=== PATIENT | female | born 1995 | race Two or more races ===

== ENCOUNTER 2018-06-09 23:28 | Inpatient (IN) | payer OTHER ==
[~2018-06-09] VITALS: Ht 157.5 cm; Wt 39.7 kg
[2018-06-09] MEDS ORDERED: NALOXONE 0.4 MG/ML, 1ML ONE (23:32)
[2018-06-09] MEDS ORDERED: SODIUM CHLORIDE 0.9% 1,000 ML IV ONE (23:35)
[2018-06-09 23:45] LABS: MEAN CORPUSCULAR HEMOGLOBIN 31.7 pg (27.0-34.8); MEAN CORPUSCULAR HGB CONC 33.6 g/dL (32.4-35.8); MEAN CORPUSCULAR VOLUME 94.2 fL (80-100); MEAN PLATELET VOLUME 7.5 fL (7.4-10.4); PLATELET COUNT 313 x10^3/uL (130-400); RED CELL DISTRIBUTION WIDTH 12.4 % (9.6-15.2)
[2018-06-09] MEDS ORDERED: PHARMACOKINETIC CONSULTATION MC ONE (23:45)
[2018-06-09] MEDS ORDERED: VANCOMYCIN 750 MG in SODIUM CHLORIDE 0.9% 100 ML IV ONE (23:45)
[2018-06-10] LABS: ALANINE AMINOTRANSFERASE 34 U/L (12-78); ANION GAP 20 mmol/L (5-15); CALCIUM 9.7 mg/dL (8.5-10.1); CHLORIDE 106 mmol/L (98-107)
[2018-06-10] MEDS ORDERED: VANCOMYCIN PER PHARMACY MC ONE
[2018-06-10] MEDS ORDERED: NALOXONE 0.4 MG/ML, 1ML IVPush PRN
[2018-06-10] MEDS ORDERED: SODIUM CHLORIDE 0.9% 1,000ML IVBOLUS ONE
[2018-06-10] MEDS ORDERED: PIPERACILLIN/TAZO/PMX 3.375GM 50 ML IVPB ONE
[2018-06-10 00:02] LABS: MD YES
[2018-06-10 00:05] LABS: ALKALINE PHOSPHATASE 72 U/L (45-117); BAND#(MANUAL) 2.79 x10^3/uL; BANDS%(MANUAL) 9 % (0-7); BILIRUBIN,TOTAL 0.3 mg/dL (0.2-1.0); CREATININE 1.08 mg/dL (0.55-1.02); LYMPH#(MANUAL) 0.93 x10^3/uL (1-6.1); LYMPHS% (MANUAL) 3 % (22-44); MONOS#(MANUAL) 2.17 x10^3/uL (0.3-2.7); MONOS% (MANUAL) 7 % (2-9); SEG#(MANUAL) 25.11 x10^3/uL (1.8-8); SEGS% (MANUAL) 81 % (42-75); TOTAL PROTEIN 9.4 g/dL (6.4-8.2)
[2018-06-10 00:06] LABS: <PLATELET ESTIMATE> ADEQUATE; <PLT MORPHOLOGY> NORMAL PLT MORPH; <RBC MORPHOLOGY> NORMAL
[2018-06-10 00:08] LABS: ACETAMINOPHEN < 2 mcg/mL (10-30); SALICYLATE LEVEL < 1.7 mg/dL (2.8-20.0)
[2018-06-10] MEDS ORDERED: NS + 20MEQ KCL 1,000 ML IV SCH (00:21)
[2018-06-10] MEDS ORDERED: PIPERACILLIN/TAZO/PMX 3.375GM 50 ML ONE (00:23)
[2018-06-10] MEDS: SODIUM CHLORIDE 0.9% 1,000ML IVBOLUS ONE ×2 (00:26→00:33)
[2018-06-10] MEDS ORDERED: ZIPRASIDONE 20 MG INJ IM PRN (00:30)
[2018-06-10] MEDS ORDERED: DOCUSATE 100 MG CAPSULE PO PRN (00:30)
[2018-06-10] MEDS ORDERED: ACETAMINOPHEN 325 MG TABLET PO PRN (00:30)
[2018-06-10] MEDS ORDERED: ONDANSETRON 2MG/ML, 2ML IVPush PRN (00:30)
[2018-06-10] MEDS: HEPARIN 5,000 UNITS/ML, 1ML SQ SCH ×3 (00:30→16:48)
[2018-06-10] MEDS ORDERED: CEFTRIAXONE PMX 1GM/50ML 50 ML IV SCH (01:00)
[2018-06-10 01:30] VITALS: BP 131/85
[2018-06-10 01:50] LABS: CULTURE INDICATED? YES; MICROSCOPIC INDICATED
[2018-06-10 01:55] LABS: AMPHETAMINE SCREEN, URINE Negative (Negative); BARBITURATE SCREEN, URINE Negative (Negative); BENZODIAZEPINE SCREEN, URINE Negative (Negative); CANNABINOID SCREEN, URINE Negative (Negative); COCAINE SCREEN, URINE Negative (Negative); METHADONE SCREEN, URINE Negative (Negative); OPIATE SCREEN, URINE Negative (Negative)
[2018-06-10 06:31] VITALS: BP 92/58
[2018-06-10] MEDS: ONDANSETRON 4 MG TABLET PO PRN ×2 (08:23→15:56)
[2018-06-10 13:13] VITALS: BP 102/68
[2018-06-10] MEDS: SODIUM CHLORIDE 0.9% 1,000 ML IV SCH (16:48)
[2018-06-10 19:50] VITALS: BP 99/63
[2018-06-11] MEDS: HEPARIN 5,000 UNITS/ML, 1ML SQ SCH ×2 (00:52→08:12)
[2018-06-11] MEDS: SODIUM CHLORIDE 0.9% 1,000 ML IV SCH (00:53)
[2018-06-11] MEDS ORDERED: CEFTRIAXONE 1,000 MG in SODIUM CHLORIDE 0.9% 50 ML IV SCH (01:00)
[2018-06-11 03:00] VITALS: BP 103/57
[2018-06-11 05:47] LABS: CHLORIDE 118 mmol/L (98-107); CREATININE 1.06 mg/dL (0.55-1.02)
[2018-06-11 05:57] LABS: BASOPHILS # (AUTO) 0.03 x10^3/uL (0-0.3); BASOPHILS % (AUTO) 0 % (0-1); EOSINOPHILS # (AUTO) 0.01 x10^3/uL (0-0.8); EOSINOPHILS % (AUTO) 0 % (1-7); LYMPHOCYTES # (AUTO) 1.54 x10^3/uL (1-6.1); LYMPHOCYTES % (AUTO) 13 % (22-44); MD NO; MEAN CORPUSCULAR HEMOGLOBIN 31.2 pg (27.0-34.8); MEAN CORPUSCULAR HGB CONC 33.4 g/dL (32.4-35.8); MEAN CORPUSCULAR VOLUME 93.5 fL (80-100); MEAN PLATELET VOLUME 7.6 fL (7.4-10.4); MONOCYTES # (AUTO) 0.99 x10^3/uL (0-1.4); MONOCYTES % (AUTO) 9 % (2-9); NEUTROPHILS # (AUTO) 9.03 x10^3/uL (1.8-8.0); NEUTROPHILS % (AUTO) 78 % (42-75); PLATELET COUNT 206 x10^3/uL (130-400); RED CELL DISTRIBUTION WIDTH 12.9 % (9.6-15.2)
[2018-06-11 06:14] LABS: ANION GAP 9 mmol/L (5-15)
[2018-06-11 06:19] LABS: CALCIUM 7.3 mg/dL (8.5-10.1)
[2018-06-11 07:00] VITALS: BP 102/65
[2018-06-11] MEDS ORDERED: LORazepam 1MG TABLET PO PRN (10:00)
[2018-06-11 14:00] VITALS: BP 98/61
[2018-06-11 17:12] VITALS: BP 108/76
[2018-06-11 19:05] VITALS: BP_SYST 100; BP_SYST 101; BP_DIAS 64; BP_DIAS 65
[2018-06-11] MEDS ORDERED: CEFDINIR 300 MG CAPSULE PO SCH (21:00)
== END 2018-06-11 23:38 | DRG 917 ==
LOC: ED 06-10 00:39 → EDIP 06-10 00:40 → 3NE 06-10 01:11 → 2N 06-11 16:54
PROVIDERS: ADMIT Family Medicine; ATTEND Family Medicine
DX: T39.312A Poisoning by propionic acid derivatives, intentional self-harm, initial encounter (principal); A41.9 Sepsis, unspecified organism; G93.40 Encephalopathy, unspecified; R65.20 Severe sepsis without septic shock; N39.0 Urinary tract infection, site not specified; E86.0 Dehydration; F32.9 Major depressive disorder, single episode, unspecified; M54.9 Dorsalgia, unspecified; Y92.89 Other specified places as the place of occurrence of the external cause
CPT/HCPCS: 36415; 71045; 80048; 80053; 80307; 80329; 81001; 83605; 83735; 84145; 84703; 85025; 87040; 87086; 93005; 96361; 96365; 96368; 96375; G0378; J0696; J1644; J2310; J2543; J3370; J3480; Q0162; G0480; J7030